=== PATIENT | male | born 1990 | race Caucasian/White ===

== ENCOUNTER 2025-01-27 12:31 | Emergency (ER) | payer OTHER, SELFPAY ==
[2025-01-27 12:43] VITALS: BP 142/95; PULSE 76; TEMP 36.7; O2SAT 98; BMI 33.9
--- NOTE | 2025-01-27 12:52 | XR_ITS ---
The [address] [address] Patient Name: MILLI FARMER MRN: [id number] date: 1990 Sex: M Assigned Patient Location: ED.MAIN Current Patient Location: ED.MAIN Accession/Order Number: [id number] Exam Date: 01/27/2025 14:16 Report Date: 01/27/2025 14:20 At the request of: ANALY QUEEN MD Procedure: XR ankle RT min 3V XR ankle RT min 3V 01/27/2025 2:06 PM SIGNS AND SYMPTOMS: Fall, right lateral hip pain PROTOCOL: Frontal, lateral, and oblique radiographs of the right ankle COMPARISON: None FINDINGS: There are well-corticated ossific structure separate from the medial and lateral malleolus suggesting previous avulsive injuries. There is diffuse soft tissue swelling. The ankle mortise is preserved. No acute displaced fracture. Mild Achilles surface calcaneal spurring is noted. XR/XR ankle RT min 3V IMPRESSION: No evidence of acute displaced fracture. Diffuse soft tissue swelling is noted. There are well-corticated ossific structure separate from the medial and lateral malleolus suggesting previous avulsive injuries. Impression dictated by: Lacho Velazquez M.D. 01/27/2025 2:20 PM Dictation Location: [place] [address] Electronically authenticated by: [id number] Y Date: 01/27/2025 14:20
--- OUTSIDE RECORDS SUMMARY | 2025-01-27 12:53 | XMS_ITS | Clinical Summary ---
Author Organization [facility] Healthcare Address [address] [facility] [place] [address] Care Team Providers Care Manager Hair Name Role Phone Unavailable Primary Care Provider Unavailabl e Social History Tobacco Use Types Packs/Day Years Used Date Smoking Tobacco: Never Assessed Sex and Gender Information Value Date Recorded Sex Assigned at Not on file Legal Sex Male 6:34 PM EDT Gender Identity Not on file Sexual Orientation Not on file Last Filed Vital Signs Vital Sign Reading Time Taken Comments Blood Pressure - - Pulse - - Temperature - - Respiratory Rate - - Oxygen Saturation - - Inhaled Oxygen Concentration - - Weight 107 kg (235 lb) 05/07/2020 12:00 PM EDT Height 182.9 cm (6') 05/07/2020 12:00 PM EDT Body Mass Index 31.87 05/07/2020 12:00 PM EDT Plan of Treatment Not on file Insurance [employer]
--- OUTSIDE RECORDS SUMMARY | 2025-01-27 12:53 | XMS_ITS | Clinical Summary ---
Author Organization [employer] Address [id number] [address] [place] [address] Care Team Providers Care Maintenance Repairer Name Role Phone Unavailable Primary Care Provider Unavailabl e Social History Tobacco Use Types Packs/Day Years Used Date Smoking Tobacco: Never Assessed Childcare Answer Date Recorded Childcare Unknown 12/27/2018 Employment Answer Date Recorded Employment Unknown 12/27/2018 Sex and Gender Information Value Date Recorded Sex Assigned at Not on file Legal Sex Male 11:44 AM EDT Gender Identity Not on file Sexual Orientation Not on file Plan of Treatment Health Maintenance Due Date Last Done Comments Depression Screening 2003 Tobacco Screening 2003 Adult BMI Screening 2009 DTaP,Tdap and Td Vaccines (1 - Tdap) 2010 Influenza Vaccine 03/18/2025 Medical Devices Not on file
--- NOTE | 2025-01-27 13:22 | ED_ITS ---
HPI HPI - General Adult General Chief complaint: Extremity Injury, Lower Stated complaint: R ANKLE INJURY [facility] Time Seen by Provider: 01/27/25 12:52 Source: patient Mode of arrival: walk-in History of Present Illness HPI narrative: The patient is a 34-year-old male who presents to the emergency department today for evaluation of concerns for right ankle pain 2/2 injury. He endorses on 01/24 he was climbing down from a bulldozer and subsequently rolled his ankle on a rock. Reports since then he has had some bruising to the proximal anterior lateral ankle. He does endorse some pain with movement how ever states this pain has been improving since the injury. He reports he has been resting and taking ibuprofen in the time being. He denies any paresthesias, weakness, loss of movement to the affected extremity. Related Data Allergies Allergy/AdvReac Type Severity Reaction Status Date / Time Sulfa (Sulfonamide Allergy Severe Hives Verified 01/27/25 12:47 Antibiotics) Review of Systems ROS Status of ROS 10 or more systems reviewed and unremark able except as noted in history and below PFSH PFSH Social History Little interest or pleasure in doing things: not at all Feeling down, depressed, or hopeless: not at all Exam Narrative Exam Narrative: Constituational: Awake/ alert, no apparent distress, well hydrated HENMT: normocephalic, external ears normal, moist oral mucous membranes and oropharynx normal Eyes: EOMI and conjunctivae normal Neck: ROM intact Chest: inspection of chest normal Respiratory: Normal respiratory effort MSK: + Pulses 2 proximal anterior lateral aspect of R ankle without surrounding edema, crepitus, deformity ROM intact, R foot stable, +NVI Skin: no rashes or petechiae Neuro: no focal deficits Psych: mental status grossly normal Constitutional Vital Signs, click to edit/add: Last Vital Signs Temp 98.1 F 01/27/25 12:43 Pulse 76 01/27/25 12:43 Resp 18 01/27/25 12:43 BP 142/95 H 01/27/25 12:43 Pulse Ox 98 01/27/25 12:43 O2 Del Method Room Air 01/27/25 12:43 Course Vital Signs Vital signs: Vital Signs Temperature 98.1 F 01/27/25 12:43 Pulse Rate 76 01/27/25 12:43 Respiratory Rate 18 01/27/25 12:43 Blood Pressure 142/95 H 01/27/25 12:43 Pulse Oximetry 98 01/27/25 12:43 Oxygen Delivery Method Room Air 01/27/25 12:43 Temperature 98.1 F 01/27/25 12:43 Pulse Rate 76 01/27/25 12:43 Respiratory Rate 18 01/27/25 12:43 Blood Pressure 142/95 H 01/27/25 12:43 Pulse Oximetry 98 01/27/25 12:43 Oxygen Delivery Method Room Air 01/27/25 12:43 Medical Decision Making MDM Narrative Medical decision making narrative: Patient is a well-appearing 34-year-old male who presented to the emergency department today for evaluation concerns for an injury to his right ankle 2/2 mechanical fall while at work on 01/24. Initial examination without a concerning neurovascular or motor findings on exam. X-ray imaging additionally without critical findings including fractures. Discussed this with the patient including recommendations for supportive care of likely ankle sprain. Advised on follow-up with patient's primary care provider in addition to occupational health for reevaluation as this was a work-related injury. Discussed signs and symptoms of any worsening condition and when to consider reevaluation by the emergency department. Patient verbalized an understanding of this and is agreeable with the plan to be discharged home. Medical Records Medical records reviewed: Yes I reviewed the patient's medical records Imaging Data XR Right ankle: Attestation: I have reviewed the pertinent imaging results. Radiologist's impression: ITS Impressions Ankle X-Ray 01/27/25 12:52 IMPRESSION: No evidence of acute displaced fracture. Diffuse soft tissue swelling is noted. There are well-corticated ossific structure separate from the medial and lateral malleolus suggesting previous avulsive injuries. Impression dictated by: Lacho Velazquez M.D. 01/27/2025 2:20 PM Dictation [facility] Electronically authenticated by: [id number] Y Date: 01/27/2025 14:20 Discharge Plan Discharge Chief Complaint: Extremity Injury, Lower Clinical Impression: Ankle sprain Patient Disposition: Home, Self-Care Print Language: Albanian Instructions: Ankle Sprain (DC), P.R.I.C.E. Treatment (ED) Additional Instructions: Rest, ice, may take Tylenol and ibuprofen as needed for any pain. Wear Moody wrap for support of injury. Please follow-up with your primary care provider for reevaluation as discussed. Referrals: Diane Matamoros MD [Primary Care Provider, Family Practice] - 1 week
== END 2025-01-27 14:58 | disposition home or self-care (01) ==
PROVIDERS: Emergency Provider Emergency Medicine; PCP Family Medicine
DX: S93.401A Sprain of unspecified ligament of right ankle, initial encounter (principal); X50.1XXA Overexertion from prolonged static or awkward postures, initial encounter
CPT/HCPCS: 73610; 99283